=== PATIENT | female | born 1975 | race Caucasian/White ===

== ENCOUNTER 2019-06-06 10:33 | Outpatient (CLI) | payer BC, SELFPAY ==
--- NOTE | ~2019-06-06 | XR_ITS ---
XR cervical spine min 6V INDICATION: Cervicalgia. Chronic neck pain. TECHNIQUE: 6 views of the cervical spine including flexion/extension views. FINDINGS: No prior studies for comparison. The cervical spine is visualized to the cervicothoracic junction. There is no prevertebral soft tiss ue swelling, listhesis, or loss of vertebral body height. Intervertebral disc spaces are normal. Th e osseous central canal is patent. No displaced cervical spine fractures are identified. No signific ant alteration of alignment with flexion/extension. IMPRESSION: 1. No significant osseous abnormality of the cervical spine. Reviewed, dictated and finalized at location A.
--- NOTE | ~2019-06-06 | XR_ITS ---
EXAMINATION: XR chest 2V EXAM DATE: 06/06/2019 10:49 INDICATION: Shortness of breath. TECHNIQUE: Frontal and lateral projections of the chest obtained and reviewed. Patient called back fo r repeat PA projection with nipple markers. There is no prior study for comparison. FINDINGS: There is approximately 6 mm left lateral sulcus nodular density, could be patient's nipple or intraparenchymal nodule. The lungs are otherwise clear. There are no pleural effusions. The card iomediastinal silhouette is within normal limits. There is no pneumothorax suspected. The bones and soft tissues are unremarkable. IMPRESSION: Left basilar nodular density, could be granuloma, bone island, left nipple. Patient is be ing called back please follow-up addendum. Reviewed, dictated and finalized at location B. IMPRESSION: Left basilar nodular density, could be granuloma, bone island, left nipple. Patient is being called back please follow-up addendum.
[2019-06-06 12:06] LABS: Alanine Aminotransferase 21 U/L (4-35); Albumin Level 4.5 g/dL (3.5-5.1); Alkaline Phosphatase 79 U/L (38-126); Aspartate Amino Transferase 24 U/L (14-36); Bilirubin,Total 0.4 mg/dL (0.2-1.3); Blood Urea Nitrogen 16 mg/dL (7-17); Carbon Dioxide 25 mmol/L (22-30); Chloride 106 mmol/L (98-107); Cholesterol 218 mg/dL (0-200); Estimated Glomerular Filt Rate > 60; Glucose 97 mg/dL (65-105); HDL Direct 85 mg/dL; Potassium 4.4 mmol/L (3.4-5.0); Sodium 137 mmol/L (137-145); Triglycerides 116 mg/dL (<150)
[2019-06-06 12:08] LABS: Hematocrit 42.5 % (37.0-47.0); Hemoglobin 13.7 g/dL (12.0-15.0); Mean Corpuscular HGB Conc 32.2 g/dl (32-36); Mean Corpuscular Volume 89.9 fl (80-100); Mean Platelet Volume 9.8 fl (7.4-10.4); Platelet Count Result 428 k/mm3 (150-375); Red Blood Count 4.73 M/mm3 (4.2-5.4); Red Cell Distribution Width 12.6 % (11.5-14.5); White Blood Count 8.3 K/mm3 (4.5-10.0)
[2019-06-06 12:17] LABS: LDL Cholesterol Direct 127 mg/dL
[2019-06-11 10:37] LABS: Vitamin D 1,25 (OH)2 Total 30 pg/mL (18-72); Vitamin D2 1,25 (OH)2 <8 pg/mL; Vitamin D3 1,25 (OH)2 30 pg/mL
== END 2019-06-06 10:34 | disposition home or self-care (01) ==
PROVIDERS: PCP Family Medicine; Visit Provider Nurse Practitioner Family
DX: R06.02 Shortness of breath (principal); Z13.220 Encounter for screening for lipoid disorders; E55.9 Vitamin D deficiency, unspecified; M54.2 Cervicalgia; R91.8 Other nonspecific abnormal finding of lung field
CPT/HCPCS: 36415; 71046; 72052; 80053; 80061; 82652; 84443; 85027

== ENCOUNTER 2019-06-19 10:20 | Outpatient (CLI) | payer BC, SELFPAY ==
--- NOTE | 2019-06-19 10:49 | EST_ITS ---
Patient Info Name: Clare Longo Age: 44 years : 1975 Gender: Female Ht: 63 in Wt: 250 lbs BSA: 2.31 m2 Exam Date: 06/19/2019 11:06 AM Exam Location: [facility] Patient Status: Outpatient Admit Date: 06/19/2019 Staff Ordering Physician: Tahmina Santos Attending Provider: Tahmina Santos Exercise Technologist: Ligia Ng RDCS Exercise Physician: Hever Drake DO Exam Type: CA stress test treadmill Study Info Indications R94.31 - Abnormal electrocardiogram ECG EKG A treadmill exercise stress test was performed. Summary 1. 1. Negative [facility] exercise stress test for ischemic ST changes by ECG criteria. 2. 2. Mildly reduced functional capacity, achieving 8 METs of workload. 3. 3. Appropriate HR response to exercise. 4. 4. Baseline hypertension and hypertensive response to exercise. 5. 5. Appropriate HR recovery at 1 minute post exercise. 6. 6. No imaging with stress testing. 7. 7. Patient informed of the above results. Protocol: [facility] Stress ECG Details Stage: REST Duration (min): 1 min : 49 sec Speed (mph): 0.0 Grade (%): 0 HR (bpm): 55 SBP (mmHg): 149 DBP (mmHg): 86 METS: --- Stage: REST Duration (min): 5 min : 59 sec Speed (mph): 0.0 Grade (%): 0 HR (bpm): 62 SBP (mmHg): 149 DBP (mmHg): 86 METS: --- Stage: STAGE 1 Duration (min): 1 min : 0 sec Speed (mph): 1.7 Grade (%): 10 HR (bpm): 90 SBP (mmHg): 149 DBP (mmHg): 86 METS: --- Stage: STAGE 1 Duration (min): 2 min : 0 sec Speed (mph): 1.7 Grade (%): 10 HR (bpm): 109 SBP (mmHg): 149 DBP (mmHg): 86 METS: --- Stage: STAGE 1 Duration (min): 3 min : 0 sec Speed (mph): 1.7 Grade (%): 10 HR (bpm): 116 SBP (mmHg): 191 DBP (mmHg): 97 METS: --- Stage: STAGE 2 Duration (min): 1 min : 0 sec Speed (mph): 2.5 Grade (%): 12 HR (bpm): 120 SBP (mmHg): 191 DBP (mmHg): 97 METS: --- Stage: STAGE 2 Duration (min): 2 min : 0 sec Speed (mph): 2.5 Grade (%): 12 HR (bpm): 125 SBP (mmHg): 191 DBP (mmHg): 97 METS: --- Stage: STAGE 2 Duration (min): 3 min : 0 sec Speed (mph): 2.5 Grade (%): 12 HR (bpm): 131 SBP (mmHg): 188 DBP (mmHg): 100 METS: --- Stage: STAGE 3 Duration (min): 0 min : 46 sec Speed (mph): 3.4 Grade (%): 14 HR (bpm): 144 SBP (mmHg): 191 DBP (mmHg): 104 METS: --- Stage: RECOVERY Duration (min): 0 min : 13 sec Speed (mph): 1.5 Grade (%): 0 HR (bpm): 146 SBP (mmHg): 191 DBP (mmHg): 104 METS: --- Stage: RECOVERY Duration (min): 1 min : 13 sec Speed (mph): 0.0 Grade (%): 0 HR (bpm): 124 SBP (mmHg): 191 DBP (mmHg): 104 METS: --- Stage: RECOVERY Duration (min): 2 min : 13 sec Speed (mph): 0.0 Grade (%): 0 HR (bpm): 101 SBP (mmHg): 232 DBP (mmHg): 114 METS: ---
== END 2019-06-19 10:21 | disposition home or self-care (01) ==
PROVIDERS: PCP Family Medicine; Visit Provider Nurse Practitioner Family
DX: R06.02 Shortness of breath (principal); I10 Essential (primary) hypertension
CPT/HCPCS: 93017

== ENCOUNTER 2019-11-28 08:00 | Outpatient (RCR) | payer BC, SELFPAY ==
--- NOTE | 2019-10-05 09:10 | PTOPEVAL ---
Addendum entered by Jessica Monge, PT 10/05/19 13:57: During the evaluation session, education was provided to pt on the basics of the vestibular system, causes of disruption to the system. She reported drinking lots of caffeine, up to 2 liter of diet soda/day and eats usually just one meal/day. Discussed with her the importance of drinking water and monitoring foot intake. Also to monitor BP, PRN during day. She did not think the meclazine was making a difference, but was still taking it; discussed to assess the effectiveness of it, by trying to go without it Original Note: PHYSICAL THERAPY EVALUATION AND PLAN OF CARE 10-05-2019 The PT evaluation was completed for the diagnosis of vertigo. Her plan of treatment is scheduled for 2x/week for 4 weeks. Thank you for referring Clare Longo to [facility]. Please review, sign, date and return this plan of care ABDIAZIZ. I agree with and certify that the following plan of care is medically necessary. Referring Physician Date Attending Provider: Cricket Kwok MD *PT Outpatient Evaluation Start: 10/05/19 08:12 Document 10/05/19 08:13 RODOLFO (Rec: 10/05/19 09:10 RODOLFO [id number]) Outpatient Past Medical History Past Medical History Source of Past Medical History Patient Neurological History Hx Migraine Yes: take meds ~ 3-4x/month; have meds to control Cardiovascular History Hx Hypertension Yes: meds Respiratory History Hx Asthma Yes: inhalers control Hx Other Respiratory Disorders Yes: seasonal allergies-- outdoor items, dogs, animals Gastrointestinal History Hx Gastrointestinal Disorders No Significant History Musculoskeletal History Hx Other Musculoskeletal Disorders Yes: L shoulder pain- recent therapy for; B knee pain-cyst Hematological History Hx Hematological Disorders No Significant History Endocrine History Hx Endocrine Disorders No Significant History HEENT History Hx Other HEENT Disorders Yes: just complete antibiotics for ear infection Psychosocial History Hx Anxiety Yes: meds Hx Depression Yes: meds- easily tearful Evaluation Information Problem Diagnosis vestibular rehab/vertigo Onset May 2019- beginning Subjective Information gradual onset at begining of Query Text:As Reported By Patient/ May; have had history of Family multiple falls- most recent end April; in past year, have had 3 big falls- broke toe, fell on ice and hit head 2x; in past year-have had 5-6 falls off ladder at work--hit head 1x,did not see dr, was OK ; Previous Treatments Previous Treatments For This Problem no PT for dizziness, margot
--- NOTE | 2019-11-01 11:52 | PTOPEVAL ---
PHYSICAL THERAPY REEVALUATION AND UPDATED PLAN OF CARE 11-01-2019 Clare has received 8 PT sessions, from October 04 to today, for the diagnosis of vertigo. Compared to the initial evaluation: she has improved with eye tracking, gaze stabilization, reported reading tolerance and is now able to sleep without awakening due to dizziness. Her headaches are less and has not had any migraines lately. The Dizziness Handicap Index, self assessment is worse by 2 points. She is doing home vestibular and eye tracking exercises. And has been educated on self management of vertigo. She continues to have limitations in activity--reading, driving, shopping, with head turns looking at shelves, 360' turns and picking up items off the floor. And symptoms of dizzy, nausea, head feels funny. Continue PT 2x/week for 4 weeks. Thank you for referring Clare Longo to [facility]. Please review, sign, date and return this plan of care ABDIAZIZ. I agree with and certify that the following plan of care is medically necessary. Referring Physician Date Attending Provider: Cricket Kwok MD Document 11/01/19 08:05 RODOLFO (Rec: 11/01/19 08:45 RODOLFO [id number]) Assessment Status Re-evaluation Subjective Information Clare reports: having a dizzy Query Text:As Reported By Patient/ day and past few days have Family been bad--nausea and problems reading; taking meclazine 2x/ day--not sure if it helps or not; did not take it this morning yet; problems reading --felt like eyes were dizzy- within a few minutes of reading; wake up in the morning with dizziness, but does not wake her up from sleep; doing exercises at home ; when driving in town problems with looking to R/L at stop signs; continue to have headaches, about once/wk; in ER due to reaction to sun flower seeds--new found allergy to them; has been taking benadryl daily since to ER; ears have felt clearer; describes dizziness as queasy and dizzy in top and back of her head; s/s increase with: driving in heavier traffic or in town, and when looking up and to the L; self assessment with Dizziness Handicap Index 46; Pain Assessment Timing of Pain Assessment Timing of Pain Assessment Assessm
--- NOTE | 2019-11-28 11:52 | PTOPEVAL ---
PHYSICAL THERAPY REEVALUATION AND HOLD 11-28-2019 Clare has received 15 PT sessions, for the diagnosis of dizziness. See Clinical Summary below. Clare has made slight improvements from PT treatment, but continues to have issues with dizziness. Recommendation: Clare is to call for a follow up appointment with you, for her to be reassessed-- considering her allergies, hearing changes, pain in her L ear with drainage, tooth issues on her L side. And if she would benefit from a referral to an ENT. PT services will be placed on hold at this time. If treatment is to continue, she will need an additional order. Thank you for referring Clare Longo to [facility].? Please review, sign, date and return this plan of care ABDIAZIZ. I agree with and certify that the following plan of care is medically necessary. Referring Physician Date Attending Provider: Cricket Kwok MD Document 11/28/19 08:05 RODOLFO (Rec: 11/28/19 09:09 RODOLFO [id number]) PT re-evaluation Subjective Information Clare reports: yesterday, felt Query Text:As Reported By Patient/ horrible, stumbling when Family walking; woke up with a bad headache this morning and dizzy, but not as queasy; doing better driving on highway- when roads are more open than driving in town; reading something on phone, enlarge the print 5-10 minutes then have to stop; can sleep without awakening from dizziness--have not had for about 3 weeks; is drinking more water; eyes itching and watering- were really red yesterday, taking allergy pills daily; ears feel like muffled sound, with some ear pain in L ear- ? problems with sensative tooth on L side, need a crown and tender there; last meclazine taken was 5 days ago, script ran out; frustration over continued dizziness. Pain Assessment Timing of Pain Assessment Timing of Pain Assessment Assessment Pain Scale Pain Scale Used Numeric (1 - 10) Self Report Pain Assessment Bilateral Neck Reported Pain Level 0 Radicular Pain Location no neck pain; headache now -dull pain back &front, earlier this AM 10/04 Pain Score Pain Score 0: Self Report Vestibular Evaluation Vestibular Testing Vestibular Testing Comments -Darryl Macias Haywood test: to R: dizzy in forehead, did not
--- NOTE | 2019-12-27 09:37 | PCPTNOTE ---
PHYSICAL THERAPY DISCHARGE 12-27-2019 Attending Provider: Cricket Kwok MD Patient:Clare Longo Date of :1975 Ms. Longo has not returned for any further treatments since the reevaluation on 11/28/2019, therefore she will be discharged at this time. Refer to the reevaluation for her status at the last appointment. Thank you for referring Clare to [facility]. Please review, sign, date and return this discharge summary ABDIAZIZ. I have been updated about the patient's current status and I agree with discharge from the above service at this time. Referring Physician Date
== END 2019-12-27 13:18 | disposition home or self-care (01) ==
LOC: ANHPT 08:00
PROVIDERS: PCP Family Medicine; Visit Provider Family Medicine
DX: R42 Dizziness and giddiness (principal)
CPT/HCPCS: 97110; 97161